=== PATIENT | male | born 1965 | race Hispanic/Latino ===

== ENCOUNTER 2019-08-06 11:17 | Inpatient (IN) | payer MEDICARE ==
[~2019-08-06] VITALS: Ht 170.2 cm; Wt 106.6 kg
--- OUTSIDE RECORDS SUMMARY | 2019-08-06 11:20 | XMS REPORT ---
Author Author Admin, Songza Organization Unknown Address Unknown Phone Unavailable PROBLEMS Condition Status Date Provider Notes Viral URI active - Sean Johnie ENCOUNTERS Date Type Provider Location Encounter Diagn osis - Ambulatory Encounter [facility] Johnie [facility] - Ambulatory Encounter [facility] - Ambulatory Encounter Lyssa Alisa Diallo Sean Johnie [facility]ie Luis A Chan [facility] Viral URI VITAL SIGNS Date Observation Value Provider oxygen saturation, oximetry 96 % Luis A Chan " method used to obtain blood pressure automatic Luis A Chan " Blood Pressure Position 01 sitting Luis A Chan " blood pressure, site #1 left arm Luis A reyes " blood pressure, diastolic 89 mm[Hg] Luis A lyons " blood pressure, systolic 138 mm[Hg] Luis A Hill apa " respiratory rate E&M 14 /min Luis A Chan " pulse rate E&M 98 /min Luis A Olmedoa " temperature site oral Luis A Chan " temperature E&M 98.8 [degF] Luis A Chan Allergies No Known Allergy Information REASON FOR REFERRAL No Information Available RESULTS Date Observation Value Provider Reference Range Interpretati on Location influenza virus A antigen negative Luis A Chan " Microbial identification kit, rapid strep method negative Alisa Chan HISTORY OF IMMUNIZATIONS No Information Available Medications No Known Medication Information SOCIAL HISTORY Date Observation Value Provider drug use, illicit, frequency few times per week Luis A Chan " drug use, illicit, drug of choice marijuana Luis A Chan " alcohol use, frequency few times per week Luis A corderoa " sexual orientation Heterosexual Luis A Chan " sex at Male Luis A Chan " Occupation #1 Retired Luis A Chan " patient considered to be homeless No Luis A Chan " drug use, illicit Currently Luis A Chan " alcohol use Currently Luis A Chan " passive cigarette smoke exposure No Luis A Chan " if the patient is using/has used a vaping item, Current, Former, Never Used, Not asked No Luis A Chan " smoking status former smoker Luis A Chan FUNCTIONAL STATUS No Information Available MENTAL STATUS Date Observation Value Provider assessment of mood and affect E&M no dep ression, [facility], [facility] " mental status examination: orientation E &M oriented to time, place, and person Sean Johnie " assessment of judgment and insight E&M intact Sean Johnie MEDICAL EQUIPMENT No Information Available FAMILY HISTORY No Information Available INSURANCE PROVIDERS No Information Available ADVANCE DIRECTIVES No Information Available TREATMENT PLAN Date Name 2019 Novel Coronavirus (CoVI D-19), JOHN Ofc Vst, Est Level III HISTORY OF PROCEDURES No Information Available GOALS No Information Available HEALTH CONCERNS No Information Available
--- OUTSIDE RECORDS SUMMARY | 2019-08-06 11:20 | XMS REPORT | Clinical Summary ---
Author Author [employer] [facility] Organization [facility] Address Unknown Phone Unavailable Care Team Providers Care Balance Assembler Name Role Phone Mike Tinsley MD PCP Allergies No Known Allergies Medications End Date Status Medication Sig Dispensed Refills Start Date Active lisinopril Take 20 mg by 0 (PRINIVIL,ZESTRIL) 20 mg mouth daily. tablet Active gabapentin (NEURONTIN) Take 1,200 mg 0 600 mg tablet by mouth 3 (three) times a day. Active metFORMIN (GLUCOPHAGE) Take 500 mg 0 500 mg tablet by mouth daily with breakfast. Active carisoprodol (SOMA) 350 Take 350 mg 0 MG tablet by mouth 3 (three) times a day as needed for muscle spasms. Active diclofenac (VOLTAREN) 1 % Apply 2 g 0 gel topically 4 (four) times a day. Active Problems No known active problems Immunizations Name Administration Dates Next Due FLUCELVAX QUAD PF 02/04/2018 () Social History Date Tobacco Use Types Packs/Day Years Used Current Some Day Smoker Cigarettes 0.5 4 Smokeless Tobacco: Never Used Comments: few sticks only Drinks/Week oz/Week Comments Alcohol Use 6-10 Cans of beer 6.0 - 10.0 drunk last-tonight, 6-10 per day Yes Sex Assigned at Date Recorded Not on file Industry Job Start Date Occupation Not on file Not on file Not on file Travel End Travel History Travel Start No recent travel history available. 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
[2019-08-06] MEDS ORDERED: ONDANSETRON HCL INJ 2MG/ML 2ML 2 MG/ML VIAL IV STA (11:50)
[2019-08-06] MEDS ORDERED: SODIUM CHLORIDE 0.9% 1000ML 1,000 ML IV STA (11:50)
[2019-08-06] MEDS ORDERED: PANTOPRAZOLE 40 MG 10ML VIAL IV STA (11:50)
[2019-08-06] MEDS ORDERED: MECLIZINE HCL 12.5 MG TAB PO ONE (12:00)
[2019-08-06 12:32] LABS: BASOPHILS # (AUTO) 0.1 (0.0-0.1); BASOPHILS % 0.6 % (0.0-1.0); EOSINOPHILS # (AUTO) 0.1 (0.0-0.4); EOSINOPHILS % 0.6 % (0.0-6.0); HEMATOCRIT 40.4 % (38.2-49.6); HEMOGLOBIN 14.2 g/dL (14.0-18.0); LYMPHOCYTES % 12.3 % (18.0-39.1); MEAN CORPUSCULAR HEMOGLOBIN 33.7 pg (28-32); MEAN CORPUSCULAR HGB CONC 35.1 g/dL (31-35); MONOCYTES # (AUTO) 0.8 (0.2-0.8); NEUTROPHILS % 76.2 % (38.7-80.0); PLATELET COUNT 147 x10e3/uL (140-360); RED BLOOD COUNT 4.21 x10e6/uL (4.3-5.7); RED CELL DISTRIBUTION WIDTH 12.1 % (11.7-14.4)
--- NOTE | 2019-08-06 12:49 | Diagnostic Imaging Report ---
EXAMINATION: CHEST SINGLE (PORTABLE) INDICATION: Dizziness COMPARISON: None FINDINGS: LINES/TUBES:None LUNGS:The lungs are well-inflated. No focal consolidation or pulmonary edema. PLEURA:No pleural effusion or pneumothorax. MEDIASTINUM:The cardiomediastinal silhouette appears normal in size and shape. BONES/SOFT TISSUES:No acute osseous injury. ABDOMEN:No free air under the diaphragm. IMPRESSION: No focal pneumonia or pulmonary edema. Signed by: Britney Chester MD on 08/06/2019 12:46 PM
[2019-08-06 12:55] LABS: INR 1.12; PROTHROMBIN TIME 15.1 seconds (11.9-14.5)
[2019-08-06 12:56] LABS: PARTIAL THROMBOPLASTIN TIME 34.2 seconds (23.8-35.5)
[2019-08-06 12:56] LABS: CLARITY,URINE CLEAR (CLEAR); COLOR,URINE ORANGE (YELLOW); KETONES,URINE TRACE (NEGATIVE); LEUKOCYTE ESTERASE ,URINE NEGATIVE (NEGATIVE); NITRITE,URINE NEGATIVE (NEGATIVE); PROTEIN,URINE DIPSTICK 1+ (NEGATIVE)
[2019-08-06 12:57] LABS: BILIRUBIN,URINE SMALL (NEGATIVE)
[2019-08-06 12:58] LABS: ALANINE AMINOTRANSFERASE 50 IU/L (0-55); ALBUMIN 3.3 g/dL (3.5-5.0); ALBUMIN/GLOBULIN RATIO 0.8 (0.8-2.0); ALKALINE PHOSPHATASE 118 IU/L (40-150); ANION GAP 14.3 mmol/L (8-16); BLOOD UREA NITROGEN 12 mg/dL (7-26); BUN/CREATININE RATIO 11 (6-25); CALCIUM 9.5 mg/dL (8.4-10.2); CARBON DIOXIDE 26 mmol/L (22-29); CHLORIDE 81 mmol/L (98-107); CREATINE KINASE 169 IU/L (30-200); CREATININE, SERUM 1.06 mg/dL (0.72-1.25); EST GLOMERULAR FILTRATION RATE > 60 ML/MIN (60-); GLUCOSE 208 mg/dL (74-118); POTASSIUM 4.3 mmol/L (3.5-5.1)
--- NOTE | 2019-08-06 13:00 | Diagnostic Imaging Report ---
CT BRAIN WO HISTORY: Dizziness COMPARISON: None. TECHNIQUE: Noncontrast axial scans were obtained from skull base to the vertex. Coronal and sagittal reconstructions obtained from the axial data. One or more of the following dose reduction techniques were used: Automated exposure control, adjustment of the mA and/or kV according to patient size, and/or utilization of iterative reconstruction technique. DISCUSSION: Scalp/Skull: Unremarkable. Brain sulci: Mildly prominent. Ventricles: Mild compensatory dilatation. Extra-axial spaces: No masses or fluid collections. Parenchyma: No abnormal densities. No mass, hemorrhage, or large vascular territory acute infarct. Dural sinuses: No abnormal densities. Sellar/Suprasellar region: Intact. Skull base: Intact. Incidental findings: Mild scattered paranasal sinus mucosal thickening. IMPRESSION: 1. No acute intracranial abnormalities. 2. Mild generalized cerebral volume loss. Signed by: Dr. Hernan Smith M.D. on 08/06/2019 12:56 PM
[2019-08-06 13:05] LABS: BACTERIA,URINE RARE /HPF; EPITHELIAL CELLS,URINE MODERATE /LPF; WBC,URINE (MAN) 0-5 /HPF (0-5)
[2019-08-06 13:05] LABS: SODIUM 117 mmol/L (136-145)
--- NOTE | 2019-08-06 14:50 | Emergency Department Note ---
History of Present Illnes History of Present Illness Chief Complaint: General Medicine Complaints History of Present Illness This is a 54 year old male HERE FOR DIZZINESS AND WEAKNESS THAT CAME ALL OF A SUDDEN, CLIENT STATES THAT HE HAS PRESSURE ACROSS THE BOTTOM OF HIS NECK. DENIES NAUSEA, VOMITING, DIARRHEA. Historian: Patient Arrival Mode: Car Clean Room Operator Required: No Onset (how long ago): day(s) Location: HEAD Quality: DIZZY, OFF-BALANCE Radiation: non-radiation Severity: moderate Onset quality: sudden Timing of current episode: constant Progression: waxing and waning Chronicity: new Context: recent illness Relieving factors: none Exacerbating factors: none Associated symptoms: weakness Past Medical/Family History Physician Review I have reviewed the patient's past medical and family history. Any updates have been documented here. Past Medical History Recent Fever: No Clinical Suspicion of Infectio: No New/Unexplained Change in Ment: No Past Medical History: Hypertension, Diabetes, Hyperlipedemia, Chronic Back Pain Past Surgical History: Knee Replacement Social History Smoking Cessation: Never Smoker Counseling Performed: No Alcohol Use: None Any Illegal Drug Use: No TB Exposure/Symptoms: No Physically hurt or threatened: No Other Any Pre-Existing Lines (PICC,: No Is patient up to date on immun: Yes Last Flu: utd Last Pneumovax: utd Review of Systems Review of Systems Constitutional: weakness EENTM: no symptoms Cardiovascular: no symptoms Respiratory: no symptoms Gastrointestinal: no symptoms Genitourinary: no symptoms Musculoskeletal: no symptoms Neurological: as per HPI, weakness Psychological: no symptoms Endocrine: no symptoms Hematological/Lymphatic: no symptoms Review of other systems All other systems reviewed and negative. Physical Exam Related Data Allergies: Coded Allergies: No Known Allergies (Unverified , 08/06/19) Triage Vital Signs Vital Signs Date Time Temp Pulse Resp B/P (MAP) Pulse Ox O2 Delivery O2 Flow Rate FiO2 08/06/19 11:41 97.6 68 16 117/70 100 Physical Exam CONSTITUTIONAL Constitutional: well-developed, well-nourished HENT HENT: normocephalic, atraumatic, oropharynx clear/moist, nose normal HENT L/R: left ext ear normal, right ext ear normal EYES Eyes: PERRL, conjunctivae normal NECK Neck: ROM normal PULMONARY Pulmonary: effort normal, breath sounds normal CARDIOVASCULAR Cardiovascular: regular rhythm, heart sounds normal, capillary refill normal, normal rate GASTROINTESTINAL Abdominal: soft, nontender, bowel sounds normal GENITOURINARY Genitourinary: exam deferred SKIN Skin: warm, dry MUSCULOSKELETAL Musculoskeletal: ROM normal NEUROLOGICAL Neurological: alert, oriented x 3, no gross motor or sensory deficits, abnormal gait (DIZZY WHEN STANDING, OFF-BALANCE/ATAXIC) PSYCHOLOGICAL Psychological: mood/affect normal, judgement normal Results Laboratory Result Diagram: 08/06/19 1158 08/06/19 1158 Laboratory Laboratory Tests Test 08/06/19 12:00 08/06/19 11:58 08/06/19 11:54 Urine Color [place] (YELLOW) Urine Clarity Clear (CLEAR) Urine pH 7 (5 - 7) Urine Specific [place] 1.020 (1.010-1.025) Urine Protein 1+ (NEGATIVE) Urine Glucose (UA) 2+ (NEGATIVE) Urine Ketones Trace (NEGATIVE) Urine Blood Negative (NEGATIVE) Urine Nitrite Negative (NEGATIVE) Urine Bilirubin Small (NEGATIVE) Urine Urobilinogen 2.0 mg/dL (0.2 - 1) Urine Leukocyte Esterase Negative (NEGATIVE) Urine RBC None /HPF (0-5) Urine WBC 0-5 /HPF (0-5) Urine Epithelial Cells Moderate /LPF (NONE) Urine Bacteria Rare /HPF (NONE) White Blood Count 7.82 x10e3/uL (4.8-10.8) Red Blood Count 4.21 x10e6/uL (4.3-5.7) Hemoglobin 14.2 g/dL (14.0-18.0) Hematocrit 40.4 % (38.2-49.6) Mean Corpuscular Volume 96.0 fL (81-99) Mean Corpuscular Hemoglobin 33.7 pg (28-32) Mean Corpuscular Hemoglobin Concent 35.1 g/dL (31-35) Red Cell Distribution Width 12.1 % (11.7-14.4) Platelet Count 147 x10e3/uL (140-360) Neutrophils (%) (Auto) 76.2 % (38.7-80.0) Lymphocytes (%) (Auto) 12.3 % (18.0-39.1) Monocytes (%) (Auto) 10.0 % (4.4-11.3) Eosinophils (%) (Auto) 0.6 % (0.0-6.0) Basophils (%) (Auto) 0.6 % (0.0-1.0) Neutrophils # (Auto) 6.0 (2.1-6.9) Lymphocytes # (Auto) 1.0 (1.0-3.2) Monocytes # (Auto) 0.8 (0.2-0.8) Eosinophils # (Auto) 0.1 (0.0-0.4) Basophils # (Auto) 0.1 (0.0-0.1) Absolute Immature Granulocyte (auto 0.02 x10e3/uL (0-0.1) Prothrombin Time 15.1 seconds (11.9-14.5) Prothromb Time International Ratio 1.12 Activated Partial Thromboplast Time 34.2 seconds (23.8-35.5) Sodium Level 117 mmol/L (136-145) Potassium Level 4.3 mmol/L (3.5-5.1) Chloride Level 81 mmol/L (98-107) Carbon Dioxide Level 26 mmol/L (22-29) Anion Gap 14.3 mmol/L (8-16) Blood Urea Nitrogen 12 mg/dL (7-26) Creatinine 1.06 mg/dL (0.72-1.25) Estimat Glomerular Filtration Rate > 60 ML/MIN (60-) BUN/Creatinine Ratio 11 (6-25) Glucose Level 208 mg/dL (74-118) Calcium Level 9.5 mg/dL (8.4-10.2) Total Bilirubin 3.4 mg/dL (0.2-1.2) Aspartate Amino Transf (AST/SGOT) 107 IU/L (5-34) Alanine Aminotransferase (ALT/SGPT) 50 IU/L (0-55) Alkaline Phosphatase 118 IU/L (40-150) Creatine Kinase 169 IU/L (30-200) Creatine Kinase MB 4.90 ng/mL (0-5.0) Troponin I 0.021 ng/mL (0-0.300) Total Protein 7.2 g/dL (6.5-8.1) Albumin 3.3 g/dL (3.5-5.0) Globulin 3.9 g/dL (2.3-3.5) Albumin/Globulin Ratio 0.8 (0.8-2.0) Bedside Glucose 223 mg/dL (70-120) Lab results reviewed: Yes Imaging Imaging results reviewed: Yes Impressions CT BRAIN WO HISTORY: Dizziness COMPARISON: None. TECHNIQUE: Noncontrast axial scans were obtained from skull base to the vertex. Coronal and sagittal reconstructions obtained from the axial data. One or more of the following dose reduction techniques were used: Automated exposure control, adjustment of the mA and/or kV according to patient size, and/or utilization of iterative reconstruction technique. DISCUSSION: Scalp/Skull: Unremarkable. Brain sulci: Mildly prominent. Ventricles: Mild compensatory dilatation. Extra-axial spaces: No masses or fluid collections. Parenchyma: No abnormal densities. No mass, hemorrhage, or large vascular territory acute infarct. Dural sinuses: No abnormal densities. Sellar/Suprasellar region: Intact. Skull base: Intact. Incidental findings: Mild scattered paranasal sinus mucosal thickening. IMPRESSION: 1. No acute intracranial abnormalities. 2. Mild generalized cerebral volume loss. Signed by: Dr. Hernan Smith M.D. on 08/06/2019 12:56 PM EXAMINATION: CHEST SINGLE (PORTABLE) INDICATION: Dizziness COMPARISON: None FINDINGS: LINES/TUBES:None LUNGS:The lungs are well-inflated. No focal consolidation or pulmonary edema. PLEURA:No pleural effusion or pneumothorax. MEDIASTINUM:The cardiomediastinal silhouette appears normal in size and shape. BONES/SOFT TISSUES:No acute osseous injury. ABDOMEN:No free air under the diaphragm. IMPRESSION: No focal pneumonia or pulmonary edema. 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 Assessment & Plan Assessment & Plan Final Impression: (1) HYPO-OSMOLALITY AND HYPONATREMIA (2) DIZZINESS AND GIDDINESS Assessment & Plan ADMIT TO KILLAM Pepper Disposition: ADMITTED Last Vital Signs Date Time Temp Pulse Resp B/P (MAP) Pulse Ox O2 Delivery O2 Flow Rate FiO2 08/06/19 14:35 69 14 109/57 100 08/06/19 13:30 97.9 Medications in the ED Pantoprazole Sodium 40 mg ONCE STAT IV Last administered on 08/06/19 13:30; Ad min Dose 40 MG; Start 08/06/19 at 11:50; Stop 08/06/19 at 12:06; Status DC Ondansetron HCl 4 mg ONCE STAT IV Last administered on 08/06/19 13:30; Admin Dose 4 MG; Start 08/06/19 at 11:50; Stop 08/06/19 at 12:06; Status DC Sodium Chloride 1,000 ml @ 0 mls/hr Q0M STAT IV Last administered on 08/06/19 13:30; Admin Dose 999 MLS/HR; Start 08/06/19 at 11:50; Stop 08/06/19 at 11:54; Status DC Meclizine HCl 25 mg ONCE ONCE PO Last administered on 08/06/19 13:30; Admin Dose 25 MG; Start 08/06/19 at 12:00; Stop 08/06/19 at 12:01; Status DC REYNA MAZARIEGOS MD Aug 06, 2019 14:50
[2019-08-06] MEDS ORDERED: ONDANSETRON HCL INJ 2MG/ML 2ML 2 MG/ML VIAL IV PRN (15:00)
--- OUTSIDE RECORDS SUMMARY | 2019-08-06 15:24 | XMS REPORT | Clinical Summary ---
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
--- OUTSIDE RECORDS SUMMARY | 2019-08-06 15:24 | XMS REPORT | Continuity of Care Document ---
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 Allergies, Adverse Reactions, Alerts This patient has no known allergies or adverse reactions. Social History Social Habit Start Date Stop Date Quantity Comments Source History of tobacco use Cigarette Smoker Hipolito Horn Sex Assigned At [facility]an yareli Bahai Cigarettes smoked current (pack per day) - Reported 00:00:00 2018-02-05 00:00:00 Hipolito Horn Cigarette pack-years 2018-02-05 00:00:00 2018-02-05 00:00:00 Hipolito Horn Alcohol intake 2018-02-05 00:00:00 2018-02-05 00:00:00 Current drinker of alcohol (finding) Hipolito Horn Tobacco Comment 2018-02-01 00:00:00 2018-02-01 00:00:[address] [place] Bahai Alcohol Comment 2018-02-01 00:00:00 2018-02-01 00:00:00 drunk la erwin, 6-10 per day Hipolito Horn Smoking Status Start Date Stop Date Source Current some day smoker 2018-02-05 00:00:00 Luna Horn Medications Ordered Medication Name Filled Medication Name Start Date Stop Da te Current Medication? Ordering Clinician Indication Dosage Frequency Signature (SIG) Comments Components Source lisinopril (PRINIVIL,ZESTRIL) 20 mg tablet 2018-02-04 17:20:56 Yes 20mg QD Take 20 mg by mouth daily. Caleb on Bahai gabapentin (NEURONTIN) 600 mg tablet 2018-02-04 17:20:56 Yes 1200mg Q.[id number] Take 1,200 mg by mouth 3 (three) times a day. Hipolito Horn metFORMIN (GLUCOPHAGE) 500 mg tablet 2018-02-04 17:20:56 Ye s 500mg QD Take 500 mg by mouth daily with breakfast. Hipolito Horn carisoprodol (SOMA) 350 MG tablet 2018-02-04 17:20:56 Ye s 350mg Q.[id number] Take 350 mg by mouth 3 (three) times a d ay as needed for muscle spasms. Hipolito Horn diclofenac (VOLTAREN) 1 % gel 2018-02-04 17:20:56 Yes 2g Q.25D Apply 2 g topically 4 (four) times a day. Hipolito Horn Procedures This patient has no known procedures. Plan of Care Planned Activity Planned Date Details Comments Source Future Scheduled Test 2019-10-04 00:00:00 INFLUENZA VACCINE [code = INFLUENZA VACCINE] [facility] Future Scheduled Test 2013-05-26 00:00:00 COLONOSCOPY SCREEN ING [code = COLONOSCOPY SCREENING] [facility] Future Scheduled Test 2013-05-26 00:00:00 SHINGLES VACCINES (#1) [code = SHINGLES VACCINES (#1)] Hipolito Horn Results Test Description Test Time Test Comments Results Result Comments Source CT BRAIN WO 2019-08-06 12:54:00 [place] [address] Patient Name: MARY ANN PRINCE JR MR #: [id number] : 1965 Age/Sex: 54/M Req #: [id number] Adm Physician: Ordered by: REYNA MAZARIEGOS MD Report #: [id number] Location: ER Room/Bed: Procedure: CT/CT BRAIN WO Exam Date: 08/06/19 Exam Time: 1230 REPORT STATUS: Signed CT BRAIN WO HISTORY: Dizziness COMPARISON: None. TECHNIQUE: Noncontrast axial scans were obtained from skull base to the vertex. Coronal and sagittal reconstructions obtained from the axial data. One or more of the following dose reduction techniques were used: Automated exposure control, adjustment of the mA and/or kV according to patient size, and/or utilization of iterative reconstruction technique. DISCUSSION: Scalp/Skull: Unremarkable. Brain sulci: Mildly prominent. Ventricles: Mild compensatory dilatation. Extra-axial spaces: No masses or fluid collections. Parenchyma: No abnormal densities. No mass, he morrhage, or large vascular territory acute infarct. Dural sinuses: No abnormal densities. Sellar/Suprasellar region: Intact. Skull base: Intact. Incidental findings: Mild scattered paranasal sinus mucosal thickening. IMPRESSION: 1. No acute intracranial abnormalities. 2. Mild generalized cerebral volume loss. Signed by: Dr. Hernan Smith M.D. on 08/06/2019 12:56 PM Dictated By: HERNAN SMITH MD [id number] Transcribed By: GRANT on 08/06/19 1256 COPY TO: REYNA MAZARIEGOS MD CHEST SINGLE (PORTABLE) 2019-08-06 12:40:00 [place] [address] Patient Name: MARY ANN PRINCE JR MR #: [id number] : 1965 Age/Sex: 54/M Req #: [id number] Adm Physician: Ordered by: REYNA MAZARIEGOS MD Report #: [id number] Location: ER Room/Bed: Procedure: DX/CHEST SINGLE (PORTABLE) Exam Date: 08/06/19 Exam Time: 1210 REPORT STATUS: Signed EXAMINATION: CHEST SINGLE (PORTABLE) INDICATION: Dizziness COMPARISON: None FINDINGS: LINES/TUBES:None LUNGS:The lungs are well-inflated. No focal consolidation or pulmonary edema. PLEURA:No pleural effusion or pneumotho rax. MEDIASTINUM:The cardiomediastinal silhouette appears normal in size and shape. BONES/SOFT TISSUES:No acute osseous injury. ABDOMEN:No free air under the diaphragm. IMPRESSION: No focal pneumonia or pulmonary edema. Signed by: Fabian Chester MD on 08/06/2019 12:46 PM Dictated By: FABIAN CHESTER MD [id number] Transcribed By: GRANT on 08/06/19 1246 COPY TO: REYNA MAZARIEGOS MD
[2019-08-06] MEDS: SODIUM CHLORIDE 0.9% 1000ML 1,000 ML IV SCH (16:00)
[2019-08-06 20:28] LABS: CREATINE KINASE MB 4.3 ng/mL (0-5.0)
[2019-08-06] MEDS: HYDROCODONE/APAP 10MG-325MG TAB PO PRN (20:29)
[2019-08-06] MEDS ORDERED: HYDROCODON-ACE1 EAC9 (20:43)
[2019-08-06] MEDS ORDERED: TIZANIDINE HCL4 MG (20:43)
[2019-08-06] MEDS ORDERED: LISINOPRIL-HCT1 EAC2 (20:43)
[2019-08-06] MEDS ORDERED: CARISOPRODOL350 MG (20:43)
[2019-08-06] MEDS ORDERED: GABAPENTIN300 MG PO (20:43)
[2019-08-06] MEDS ORDERED: METFORMIN HCL1000 MG (21:04)
[2019-08-06] MEDS ORDERED: GLIPIZIDE ER2.5 MG (21:04)
[2019-08-07] VITALS (8 sets, daily range): BP systolic 125–160; BP diastolic 74–92
[2019-08-07] MEDS: SODIUM CHLORIDE 0.9% 1000ML 1,000 ML IV SCH (01:37)
[2019-08-07] MEDS: HYDROCODONE/APAP 10MG-325MG TAB PO PRN ×3 (03:47→21:42)
[2019-08-07 03:48] LABS: BASOPHILS % 0.7 % (0.0-1.0); EOSINOPHILS # (AUTO) 0.1 (0.0-0.4); EOSINOPHILS % 2.1 % (0.0-6.0); HEMOGLOBIN 13.5 g/dL (14.0-18.0); LYMPHOCYTES # (AUTO) 1.3 (1.0-3.2); LYMPHOCYTES % 22.1 % (18.0-39.1); MEAN CORPUSCULAR HEMOGLOBIN 33.4 pg (28-32); MEAN CORPUSCULAR HGB CONC 35.5 g/dL (31-35); MEAN CORPUSCULAR VOLUME 94.1 fL (81-99); MONOCYTES # (AUTO) 0.7 (0.2-0.8); MONOCYTES % 10.9 % (4.4-11.3); NEUTROPHILS # (AUTO) 3.9 (2.1-6.9); NEUTROPHILS % 63.9 % (38.7-80.0); PLATELET COUNT 125 x10e3/uL (140-360); RED BLOOD COUNT 4.04 x10e6/uL (4.3-5.7); RED CELL DISTRIBUTION WIDTH 12.1 % (11.7-14.4)
[2019-08-07 04:03] LABS: ALANINE AMINOTRANSFERASE 43 IU/L (0-55); ALBUMIN/GLOBULIN RATIO 0.8 (0.8-2.0); ALKALINE PHOSPHATASE 101 IU/L (40-150); ANION GAP 14.1 mmol/L (8-16); BLOOD UREA NITROGEN 12 mg/dL (7-26); BUN/CREATININE RATIO 14 (6-25); CALCIUM 8.7 mg/dL (8.4-10.2); CARBON DIOXIDE 25 mmol/L (22-29); CHLORIDE 94 mmol/L (98-107); CREATININE, SERUM 0.84 mg/dL (0.72-1.25); EST GLOMERULAR FILTRATION RATE > 60 ML/MIN (60-); GLUCOSE 171 mg/dL (74-118); POTASSIUM 4.1 mmol/L (3.5-5.1)
[2019-08-07 04:22] LABS: SODIUM 129 mmol/L (136-145)
[2019-08-07 04:40] LABS: CREATINE KINASE MB 4.4 ng/mL (0-5.0)
--- NOTE | 2019-08-07 07:00 | NUR ---
RECEIVED PATIENT RESTING IN BED NO S/S OF DISTRESS. BED LOW, WHEELS LOCKED, SIDE RAILS X2. CALL LIGHT IN REACH WILL CONTINUE TO MONITOR PATIENT.
[2019-08-07 07:47] LABS: RBC MORPHOLOGY COMMENT NORMAL
[2019-08-07 07:48] LABS: PLATELET ESTIMATE SLIGHTLY DECREASED; PLATELET MORPHOLOGY COMMENT FEW EDTA CLUMPING
[2019-08-07] MEDS: GABAPENTIN 300 MG CAP PO SCH ×3 (08:57→21:31)
[2019-08-07] MEDS ORDERED: DEXTROSE 50% SYRINGE 50 ML IV PRN (09:15)
[2019-08-07] MEDS ORDERED: LORAZEPAM INJ 2 MG/ML VIAL IV PRN (09:30)
[2019-08-07 10:34] LABS: CHOL/HDL RATIO 3.2 (3.9-4.7)
[2019-08-07 10:54] LABS: THYROID STIMULATING HORMONE 2.246 uIU/mL (0.350-4.940)
[2019-08-07] MEDS: INSULIN LISPRO 100 UNIT/1 ML 3ML VIAL SQ SCH ×3 (11:30→21:27)
[2019-08-07] MEDS: LISINOPRIL 10 MG TAB PO SCH (12:25)
[2019-08-07] MEDS ORDERED: DESMOPRESSIN ACETATE 4 MCG/ML VIAL SQ STA (12:42)
[2019-08-07 12:54] LABS: CREATINE KINASE MB 2.2 ng/mL (0-5.0)
[2019-08-07] MEDS ORDERED: DESMOPRESSIN ACETATE 4 MCG/ML VIAL SQ NR (13:30)
[2019-08-07] MEDS ORDERED: DEXTROSE 5% 1,000 ML IV SCH (13:30)
--- NOTE | 2019-08-07 19:20 | NUR ---
Bedside shift report received from day RN. Pt is alert and oriented x3. 20 g sl in left ac. Pt voiding without difficulty. pt resting in bed in semifowlers position. No distress noted.
[2019-08-07] MEDS: CARISOPRODOL 350 MG TAB PO SCH (21:31)
[2019-08-08] VITALS (8 sets, daily range): BP systolic 127–150; BP diastolic 74–88
--- NOTE | 2019-08-08 01:12 | Consultation ---
DATE OF CONSULTATION: Nephrology Consultation CHIEF COMPLAINT: Dizziness, lightheadedness. REASON FOR CONSULTATION: Hyponatremia. HISTORY OF PRESENT ILLNESS: A 54-year-old male, history of hypertension on HCTZ. He presents to the ED with complaints of lightheadedness and dizziness that began yesterday afternoon. The patient initially was at home, watching television, noticed to be very lightheaded and dizzy in which he stood up. He had difficulty ambulating. He denies any facial droop or any weakness. No stroke-like symptoms. No seizure-like activity. The patient then came into the ED for further evaluation and management. While here, his sodium level was found to be 117, likely leading to his underlying etiology. Nephrology was consulted for further management and care. During my consultation evaluation, the patient's sodium rapidly corrected to 129 needing DDAVP and D5W. Once that was initiated, q.6 hours labs were drawn with current sodium of 124. The patient is seen and evaluated at bedside on the medical floor. He is currently doing very well. He denies any symptoms. No lightheadedness or dizziness or any chest pain. LABORATORY DATA: White count 6, hemoglobin 13, hematocrit 38, platelets 125. Sodium was 117 on admission, then went to 129, now 124 per hour after DDAVP and D5W. Potassium 4, chloride 94, bicarb 25, anion gap is 14. BUN is 12, creatinine is 0.84, glucose 171. Total bilirubin is 3.5, AST 98, ALT 43, alkaline phosphatase 101. Troponin was negative. Albumin was 3. TSH is 2.2. LDL was 91. Urinalysis negative. Coronavirus PCR was found to be negative. Urine cultures were negative. IMAGING STUDIES: CT brain was found to be negative. Chest x-ray found to be negative. Carotid Doppler found to be negative. PHYSICAL EXAMINATION: VITAL SIGNS: Temperature is 97.9, pulse 80, respiratory rate is 18, blood pressure is 126/79, pulse ox 96% on room air. GENERAL: In no acute distress. Alert and oriented x3. Cooperative on examination. HEENT: Head is normocephalic and atraumatic. Eyes; pupils are equal, round, and reactive to light bilaterally. Extraocular movements intact bilaterally. Throat; no evidence of erythema or exudates in the posterior pharynx. Has poor dentition. NECK: Supple. Good range of motion. PULMONARY: Clear to auscultation bilaterally. No wheezing, rales, or rhonchi. No crackles appreciated. CARDIOVASCULAR: Positive S1, S2. No murmurs, rubs, or gallops appreciated. ABDOMEN: Soft, nondistended, and nontender to palpation. Bowel sounds present. MUSCULOSKELETAL: Strength is 5/5 throughout. No evidence of any muscle deficits on examination. No weakness appreciated. NEUROLOGIC: Cranial nerves 2 through 12 are grossly intact. No evidence of any neurological deficits on exam. SKIN: Intact. Warm to touch. Good cap refill. PSYCHIATRIC: Normal affect and mood. EXTREMITIES: No edema. Good range of motion throughout. IMPRESSION: 1. Lightheadedness and dizziness, secondary to hyponatremia. 2. Hyponatremia, secondary to thiazide diuretic. 3. Hypertension. 4. Type 2 diabetes. PLAN: At this time, the patient's symptoms resolved in terms of lightheadedness and dizziness. His sodium was 117 on admission, then corrected to 129 very rapidly. When I saw the patient, I immediately discontinued all fluids and started on D5W at 150 mL/h, DDAVP at 2 mcg subcu x1, q.6 hours sodium levels. Our goal is to correct the sodium level at 0.5 mEq/L/hour, approximately 8 mEq/L on a given day. We will need to discontinue hydrochlorothiazide as well, which is the likely culprit of his underlying hyponatremia. We will continue to monitor very closely. Discussed plan of care with nursing staff. MD GEORGE Ventura/LORNA /[id number]
[2019-08-08 05:44] LABS: BASOPHILS # (AUTO) 0.1 (0.0-0.1); BASOPHILS % 0.7 % (0.0-1.0); EOSINOPHILS # (AUTO) 0.2 (0.0-0.4); HEMATOCRIT 39.2 % (38.2-49.6); HEMOGLOBIN 13.9 g/dL (14.0-18.0); LYMPHOCYTES # (AUTO) 1.4 (1.0-3.2); LYMPHOCYTES % 19.5 % (18.0-39.1); MEAN CORPUSCULAR HEMOGLOBIN 34.5 pg (28-32); MEAN CORPUSCULAR HGB CONC 35.5 g/dL (31-35); MEAN CORPUSCULAR VOLUME 97.3 fL (81-99); MONOCYTES # (AUTO) 0.8 (0.2-0.8); MONOCYTES % 10.8 % (4.4-11.3); NEUTROPHILS # (AUTO) 4.6 (2.1-6.9); NEUTROPHILS % 65.6 % (38.7-80.0); PLATELET COUNT 116 x10e3/uL (140-360); RED BLOOD COUNT 4.03 x10e6/uL (4.3-5.7); RED CELL DISTRIBUTION WIDTH 11.9 % (11.7-14.4)
[2019-08-08 06:11] LABS: ALANINE AMINOTRANSFERASE 48 IU/L (0-55); ALBUMIN 3.1 g/dL (3.5-5.0); ALBUMIN/GLOBULIN RATIO 0.8 (0.8-2.0); ALKALINE PHOSPHATASE 105 IU/L (40-150); ANION GAP 10.8 mmol/L (8-16); BLOOD UREA NITROGEN 10 mg/dL (7-26); BUN/CREATININE RATIO 13 (6-25); CALCIUM 8.4 mg/dL (8.4-10.2); CARBON DIOXIDE 27 mmol/L (22-29); CHLORIDE 87 mmol/L (98-107); CREATININE, SERUM 0.78 mg/dL (0.72-1.25); EST GLOMERULAR FILTRATION RATE > 60 ML/MIN (60-); GLUCOSE 162 mg/dL (74-118); MAGNESIUM 1.6 MG/DL (1.3-2.1); POTASSIUM 3.8 mmol/L (3.5-5.1); SODIUM 121 mmol/L (136-145)
--- NOTE | 2019-08-08 07:26 | NUR ---
LAB RESULTS REPORTED TO DR. AMARAL NEW ORDERS IMPLEMENTED.
[2019-08-08] MEDS: INSULIN LISPRO 100 UNIT/1 ML 3ML VIAL SQ SCH ×4 (07:30→21:00)
[2019-08-08] MEDS ORDERED: SODIUM CHLORIDE 0.9% 1000ML 1,000 ML IV SCH (08:00)
[2019-08-08] MEDS: LISINOPRIL 10 MG TAB PO SCH (08:11)
[2019-08-08] MEDS: GABAPENTIN 300 MG CAP PO SCH ×3 (08:11→20:59)
[2019-08-08] MEDS ORDERED: LISINOPRIL 10 MG TAB PO SCH (09:00)
[2019-08-08] MEDS: ASPIRIN 81 MG CHEW TAB PO SCH (09:42)
[2019-08-08] MEDS: HYDROCODONE/APAP 10MG-325MG TAB PO PRN ×2 (09:42→21:53)
[2019-08-08] MEDS ORDERED: SODIUM CHLORIDE 1 GM TAB PO NR (17:30)
[2019-08-08] MEDS: CARISOPRODOL 350 MG TAB PO SCH (21:00)
[2019-08-08] MEDS ORDERED: ATORVASTATIN 10 MG TAB PO SCH (21:00)
--- NOTE | 2019-08-08 21:55 | NUR ---
NOTIFIED DR. AMARAL REGARDING SODIUM LEVEL READING 122. NEW ORDER RECEIVED TO STOP IVF NORMAL SALINE AND RECHECK SODIUM IN 6 HOURS.
--- NOTE | 2019-08-09 00:16 | Progress Note ---
DATE: 08/08/2019 Nephrology Progress Note SUBJECTIVE: The patient was evaluated approximately 1:15 this afternoon. His sodium is still in the process of being corrected. He is afebrile. He is doing well. He is not lightheaded or dizzy. PHYSICAL EXAMINATION: VITAL SIGNS: Temperature is 97.8, pulse 87, respiratory rate is 18, blood pressure 130/88, and pulse ox 98% on room air. GENERAL: Not in acute distress. Alert and oriented x3. Cooperative on examination. HEENT: Head; normocephalic, atraumatic. Eyes; pupils are equal, round, and reactive to light bilaterally. Extraocular movements intact bilaterally. Throat; no evidence of erythema or exudates in the posterior pharynx. Has poor dentition. NECK: Supple. Good range of motion. PULMONARY: Clear to auscultation bilaterally. No wheezing, no rales, no rhonchi, no crackles appreciated. CARDIOVASCULAR: Positive S1 and S2. No murmurs, rubs, or gallops appreciated. ABDOMEN: Soft, nondistended, and nontender to palpation. Bowel sounds present. MUSCULOSKELETAL: Strength is 5/5 throughout. No evidence of any muscle deficits on examination. No weakness appreciated. NEUROLOGIC: Cranial nerve II through XII grossly intact. No evidence of any neurological deficits on exam. SKIN: Intact. Warm to touch. Good cap refill. PSYCHIATRIC: Normal affect and mood. EXTREMITIES: No edema. Good range of motion throughout. LABORATORY DATA: Show white count 7, hemoglobin 13.9, hematocrit is 39, platelets of 116. Chemistry; the patient's sodium was 119 this morning, then 117 after given DDAVP and now the fluids have been discontinued, and now his sodium is 122 after some correction. Potassium 3.8, chloride is 87, bicarbonate 27, anion gap of 10, BUN is 10, creatinine is 0.78. MICROBIOLOGY: Nothing new. IMAGING STUDIES: Nothing new. IMPRESSION: 1. Lightheadedness and dizziness secondary to hyponatremia. 2. Hyponatremia secondary to thiazide diuretic. 3. Hypertension. 4. Type 2 diabetes. PLAN: At this time, sodium was 119 this morning, then went to 117, now 122 after normal saline, 2 g of sodium chloride and volume restriction 1.2 L. At this time, we are going to stop all fluids. Let him auto correct, get a repeat chemistry in the morning. If the patient maintains appropriate rate of correction and he has approximately around 128 of sodium tomorrow, he can potentially be discharged to home. We will have to discontinue hydrochlorothiazide. I discussed this with the patient at bedside and he verbalized understanding. MD GEORGE Ventura/MODL /[id number]
[2019-08-09 00:47] VITALS: BP 134/73
[2019-08-09 05:37] VITALS: BP 139/87
[2019-08-09 06:28] LABS: BASOPHILS # (AUTO) 0.1 (0.0-0.1); BASOPHILS % 0.9 % (0.0-1.0); EOSINOPHILS # (AUTO) 0.1 (0.0-0.4); EOSINOPHILS % 2.2 % (0.0-6.0); HEMATOCRIT 38.8 % (38.2-49.6); HEMOGLOBIN 13.4 g/dL (14.0-18.0); LYMPHOCYTES # (AUTO) 1.2 (1.0-3.2); LYMPHOCYTES % 18.7 % (18.0-39.1); MEAN CORPUSCULAR HEMOGLOBIN 33.5 pg (28-32); MEAN CORPUSCULAR HGB CONC 34.5 g/dL (31-35); MONOCYTES # (AUTO) 0.7 (0.2-0.8); MONOCYTES % 10.8 % (4.4-11.3); NEUTROPHILS # (AUTO) 4.2 (2.1-6.9); NEUTROPHILS % 66.9 % (38.7-80.0); PLATELET COUNT 137 x10e3/uL (140-360); RED CELL DISTRIBUTION WIDTH 12.1 % (11.7-14.4)
[2019-08-09 07:01] LABS: ALANINE AMINOTRANSFERASE 55 IU/L (0-55); ALBUMIN/GLOBULIN RATIO 0.8 (0.8-2.0); ALKALINE PHOSPHATASE 99 IU/L (40-150); ANION GAP 13.1 mmol/L (8-16); BLOOD UREA NITROGEN 9 mg/dL (7-26); BUN/CREATININE RATIO 11 (6-25); CALCIUM 8.9 mg/dL (8.4-10.2); CARBON DIOXIDE 25 mmol/L (22-29); CHLORIDE 94 mmol/L (98-107); CREATININE, SERUM 0.79 mg/dL (0.72-1.25); EST GLOMERULAR FILTRATION RATE > 60 ML/MIN (60-); GLUCOSE 148 mg/dL (74-118); POTASSIUM 4.1 mmol/L (3.5-5.1); SODIUM 128 mmol/L (136-145)
--- NOTE | 2019-08-09 07:13 | NUR ---
NOTIFIED DR. AMARAL REGARDING SODIUM READING 128. NEW ORDERS RECEIVED FOR D5W AT 125MLS/HR, CHECK SODIUM LEVEL IN 4 HOURS AND TO DC FLUID RESTRICTION.
[2019-08-09] MEDS ORDERED: DEXTROSE 5% 1,000 ML IV SCH (07:15)
--- NOTE | 2019-08-09 07:21 | NUR ---
REPORT GIVEN TO MASSIEL ORTIZ
[2019-08-09] MEDS: INSULIN LISPRO 100 UNIT/1 ML 3ML VIAL SQ SCH ×2 (08:00→12:00)
[2019-08-09] MEDS ORDERED: ASPIRIN CHEW81 MG PO (08:03)
[2019-08-09] MEDS ORDERED: LIPITOR10 MG PO (08:03)
[2019-08-09] MEDS ORDERED: LISINOPRIL10 MG PO (08:03)
[2019-08-09 08:24] VITALS: BP 147/83
[2019-08-09 08:50] VITALS: BP 147/83
[2019-08-09] MEDS: ASPIRIN 81 MG CHEW TAB PO SCH (08:57)
[2019-08-09] MEDS: GABAPENTIN 300 MG CAP PO SCH (08:57)
[2019-08-09] MEDS: LISINOPRIL 10 MG TAB PO SCH (08:57)
[2019-08-09] MEDS: HYDROCODONE/APAP 10MG-325MG TAB PO PRN (09:00)
[2019-08-09 12:32] VITALS: BP 139/93
--- NOTE | 2019-08-09 13:45 | NUR ---
Dr Barnett notified of pt NA results 125. would not give a DC order at this time, states he wants a rpeat Na level and will come within the hour to talk to pt
--- NOTE | 2019-08-09 14:13 | Discharge Summary ---
ADMISSION DIAGNOSES: 1. Hyponatremia. 2. Dizziness. 3. Hypertension. 4. Hyperlipidemia. 5. Type 2 diabetes. 6. Obesity with a BMI of 36.8. 7. Chronic pain. 8. EtOH abuse. DISCHARGE DIAGNOSES: 1. Hyponatremia. 2. Dizziness. 3. Hypertension. 4. Hyperlipidemia. 5. Type 2 diabetes. 6. Obesity with a BMI of 36.8. 7. Chronic pain. 8. EtOH abuse. 9. Rule out cerebrovascular accident. HISTORY: Hypertension, hyperlipidemia, type 2 diabetes, chronic neck and back pain. SURGICAL HISTORY: Right total knee replacement, right hand surgery, tonsillectomy. FAMILY HISTORY: The patient's mom has diabetes and cancer. SOCIAL HISTORY: The patient admits to drinking 3-5 beers practically every day. HOSPITAL COURSE: A 54-year-old male admits with complaints of dizziness and generalized weakness that started yesterday. He denies vision changes, dysphagia, and focal weakness. On admission, the patient's sodium was 117, IV fluids were started in the ER and Nephrology was consulted. Chest x-ray showed no edema or pneumonia. CT of the brain was negative. Per Nephrology recommendation, the patient's hydrochlorothiazide was stopped and cessation of alcohol was discussed. The patient's sodium normalized over the next day or two and patient was discharged home as his sodium was 128 per Nephrology recommendation. He will stop taking the hydrochlorothiazide and quit alcohol consumption. The patient will follow up with primary care in 1 to 2 weeks. The patient understands instructions and agrees to plan. Dictated by Yen Pleitez NP MD CARMEN Jones/MODL /[id number]
--- NOTE | 2019-08-09 15:50 | NUR ---
dr faith to see pt. pt dc by dr faith, dr duval for pt to f/u with pcp for a level outpt
[2019-08-09 16:10] VITALS: BP 125/81
--- NOTE | 2019-08-09 16:15 | Progress Note ---
DATE: ADDENDUM: The patient is eager to be discharged. He did not want to stay longer. He get his sodium checked at 05:00 p.m. His sodium on discharge was 125. He is asymptomatic. He has no complaints. No lightheadedness or dizziness. No nausea or vomiting. I told him that it is important to have that test done, he does not want to do. So, I recommended him getting a repeat sodium level and chemistry in the next 4-5 days at his PCP's office. He agreed to those plans. He will follow up with his PCP at that time. I have discussed with them if he has any symptoms, he will come back to the hospital. Once again, the patient refuses to stay longer in the hospital. Otherwise, hopefully he will follow up as an outpatient. He was educated about discontinuing hydrochlorothiazide. MD GEORGE Ventura/LORNA /[id number]
--- NOTE | 2019-08-09 16:20 | NUR ---
explain to pt to followup with his pcp for na level. pt states he has an appt this coming sunday
--- NOTE | 2019-08-09 16:34 | Progress Note ---
DATE: Nephrology Progress Note SUBJECTIVE: The patient is doing well today with no complaints. No overnight events. OBJECTIVE: VITAL SIGNS: Temperature is 97.6, pulse 94, respiratory rate is 18, blood pressure is 112/70, pulse ox is 100% on room air. GENERAL: Not in acute distress. Alert and oriented x3. Cooperative on examination. HEENT: Head; normocephalic, atraumatic. Eyes; pupils are equal, round, and reactive to light bilaterally. Extraocular movements intact bilaterally. Throat; no evidence of erythema or exudates in the posterior pharynx. Has poor dentition. NECK: Supple. Good range of motion. PULMONARY: Clear to auscultation bilaterally. No wheezing, no rales, no rhonchi, no crackles appreciated. CARDIOVASCULAR: Positive S1 and S2. No murmurs, rubs, or gallops appreciated. ABDOMEN: Soft, nondistended, and nontender to palpation. Bowel sounds present. MUSCULOSKELETAL: Strength is 5/5 throughout. No evidence of any muscle deficits on examination. SKIN: Intact. Warm to touch. Good cap refill. PSYCHIATRIC: Normal affect and mood. EXTREMITIES: No edema. Good range of motion throughout. LABORATORY DATA: CBC stable. Chemistries reviewed, sodium is 125 at 11:20 a.m. compared to yesterday at 11:30, it was 119 with much improvement. The rest of chemistries are stable. MICROBIOLOGY: None. IMAGING: None. IMPRESSION: 1. Hyponatremia. 2. Lightheadedness, dizziness secondary to #1. 3. Hypertension. 4. Type 2 diabetes. PLAN: At this time, his sodium has improved and was gradually increased appropriately. The patient was discharged to home. The patient was advised to discontinue his hydrochlorothiazide at home. He was advised not to take any medications in that class. Repeat chemistry in 1 week at the PCP's office. MD GEORGE Ventura/MODL /[id number]
== END 2019-08-09 17:15 | disposition home or self-care (01) | DRG 641 ==
LOC: ER 11:17 → ERHOLD 15:20 → MED/SURG 22:09
PROVIDERS: ADMIT Internal Medicine; ATTEND Internal Medicine
DX: E87.1 Hypo-osmolality and hyponatremia (principal); R42 Dizziness and giddiness; I10 Essential (primary) hypertension; E11.9 Type 2 diabetes mellitus without complications; E78.5 Hyperlipidemia, unspecified; M54.9 Dorsalgia, unspecified; F10.10 Alcohol abuse, uncomplicated; T50.2X5A Adverse effect of carbonic-anhydrase inhibitors, benzothiadiazides and other diuretics, initial encounter; E66.9 Obesity, unspecified; Z68.36 Body mass index [BMI] 36.0-36.9, adult; Z96.651 Presence of right artificial knee joint; Z83.3 Family history of diabetes mellitus; Z80.9 Family history of malignant neoplasm, unspecified; Z79.84 Long term (current) use of oral hypoglycemic drugs
CPT/HCPCS: 36415; 70450; 71045; 80053; 80061; 81001; 82550; 82553; 82948; 83036; 83735; 84295; 84443; 84484; 85025; 85610; 85730; 87086; 87635; 93005; 93306; 93880; 99284; J2405; J7030; J7070